=== PATIENT | female | born 1995 | race Caucasian/White ===

== ENCOUNTER 2020-10-17 04:10 | Day surgery (SDC) | payer OTHER ==
[~2020-10-17 04:10] MED LIST: IBUPROFEN800 MG PO; IRON325 MG PO; PRENATAL TABLE1 EAC1 PO; VITAMIN C500 M1 PO
== END 2020-10-17 11:50 | disposition home or self-care (01) ==
LOC: CIR.AMB 04:10
PROVIDERS: ATTEND Specialist
DX: K80.10 Calculus of gallbladder with chronic cholecystitis without obstruction (principal); Z20.822 Contact with and (suspected) exposure to COVID-19